=== PATIENT | male | born 1995 | race Caucasian/White ===

== ENCOUNTER 2018-11-21 19:28 | Emergency (ER) | payer OTHER ==
[2018-11-21 19:49] VITALS: BP 155/45
--- NOTE | 2018-11-21 19:58 | UC ---
Laceration HPI - HPI Summary HPI Summary: Patient sustained 2 lacerations to the back of his left calf from a chainsaw that he tossed and then it hit something and bounced back and hit him in the back of the calf. Bleeding is controlled. Tetanus status is unknown. - History Of Current Complaint Chief Complaint: UCWounds Stated Complaint: LACERATION LEFT CALF Time Seen by Provider: 11/21/18 19:57 Hx Obtained From: Patient Laceration Location: Leg Mechanism Of Injury: Sharp Trauma Onset/Duration: Sudden Onset - Left calf. Severity: Mild Pain Intensity: 0 - Allergies/Home Medications Allergies/Adverse Reactions: Allergies Allergy/AdvReac Type Severity Reaction Status Date / Time No Known Allergies Allergy Verified 11/21/18 19:49 PMH/Surg Hx/FS Hx/Imm Hx Previously Healthy: Yes - Surgical History Surgical History: None - Family History Known Family History: Positive: Non-Contributory - Social History Alcohol Use: Occasionally Substance Use Type: None Smoking Status (MU): Never Smoked Tobacco - Immunization History Most Recent Tetanus Shot: unknown Review of Systems All Other Systems Reviewed And Are Negative: Yes Skin: Positive: Other - Two Lacerations to back of left calf him a bleeding is controlled. Is Patient Immunocompromised?: No Physical Exam Triage Information Reviewed: Yes Appearance: Well-Appearing, No Pain Distress, Well-Nourished Vital Signs: Initial Vital Signs Temp 97.9 F 11/21/18 19:43 Pulse 81 11/21/18 19:43 Resp 18 11/21/18 19:43 BP 155/45 11/21/18 19:43 Pulse Ox 100 11/21/18 19:43 Vital Signs Reviewed: Yes Musculoskeletal: Positive: Strength Intact, ROM Intact, Other: - The peripheral pulses neuro sensation capillary refill. Neurological: Positive: Alert, Muscle Tone Normal Psychological Exam: Normal Skin: Positive: Other - 2.5 centimeter laceration to back of calf and 1.0 cm laceration just proximal to that. Bleeding is controlled. Laceration Repair - Laceration Repair 1 Description: Linear Laceration Size After Repair: Length (cm) - 2.5 cm laceration. And a smaller laceration small to that of 1.0 cm. Modified For Repair: No Type Injection: Local Anesthesia Used: 1.0% Lido Additive Used (in ml): Epi Cleansing Completed Via Routine Prep: Yes Irrigation With Pressure Irrigation Device: Yes Closure Material: Sutures - Sutures placed numbered 5 in the larger laceration of 4-0 Monosoft, and numbered 2 in the smaller laceration of 40 Monosoft Closure Method: Single Layer Suture Of: Skin Suture Type: Other - Monosoft Laceration Course/Dx - Course/Dx Course Of Treatment: Patient tolerated the laceration repair well. Dry sterile bulky dressing was applied. Tdap was given - Diagnosis Provider Diagnosis: Laceration of leg Discharge - Sign-Out/Discharge Documenting (check all that apply): Patient Departure All imaging exams completed and their final reports reviewed: No Studies - Discharge Plan Condition: Fair Disposition: HOME Prescriptions: Cephalexin CAP* [Keflex 500 CAP*] 500 mg PO TID 10 Days #30 cap Patient Education Materials: Care For Your Stitches (DC) Referrals: Octavio Garcia MD [Medical Doctor] - No Primary Care Phys,NOPCP [Primary Care Provider] - Additional Instructions: Change the dressing daily, sutures out in 10 days. Follow-up with Dr. Garcia if you develop any signs of infection such as hot, red, tender, red streaks, pus drainage or fever. - Billing Disposition and Condition Condition: FAIR Disposition: Home - Attestation Statements Provider Attestation: Per institutional requirements, I have reviewed the chart, however, I was not consulted specifically or made aware of this patient by the midlevel provider. I did not personally evaluate, interact with , or disposition this patient.
[2018-11-21] MEDS ORDERED: Lidocain 1% EPI 1:100,000 * 30 ML MDV INJ ONE (20:02)
[2018-11-21] MEDS ORDERED: Lidocaine 2% W/EPI 1:100,000* 20 ML MDV INJ ONE (20:09)
[2018-11-21] MEDS ORDERED: Tetan/Diph/Pertus SYR(Tdap)* 0.5 ML SYR(BOOSTRIX) use SYR IM ONE (20:23)
== END 2018-11-21 21:35 | disposition home or self-care (01) ==
LOC: UCCORT 19:28
DX: S81.812A Laceration without foreign body, left lower leg, initial encounter (principal); W29.3XXA Contact with powered garden and outdoor hand tools and machinery, initial encounter; Y92.9 Unspecified place or not applicable; Z23 Encounter for immunization
CPT/HCPCS: 12002; 90471; 90715; 99201; G0463